=== PATIENT | female | born 1985 | race African-American/Black ===

== ENCOUNTER 2017-04-10 21:34 | Emergency (ER) | payer OTHER ==
[~2017-04-10] VITALS: Ht 172.7 cm; Wt 68.0 kg
[2017-04-10] MEDS ORDERED: CEPH500 PO (22:10)
[2017-04-10] MEDS ORDERED: FERR1TAB21 PEG (22:10)
[2017-04-10 23:12] LABS: BASOPHILS % (AUTO) 0.6 % (0.0-2.0); EOSINOPHILS % (AUTO) 1.2 % (1.0-6.0); HEMATOCRIT 34.8 % (36-46); HEMOGLOBIN 11.5 g/dL (12.0-16.0); LYMPHOCYTES % (AUTO) 38.4 % (22.0-44.0); MEAN CORPUSCULAR HEMOGLOBIN 27.6 pg (26.0-34.0); MEAN CORPUSCULAR VOLUME 84 fL (80-100); MONOCYTES # (AUTO) 0.7 K/uL (0.1-1.0); NEUTROPHILS # (AUTO) 5.5 K/uL (1.8-7.7); NEUTROPHILS % (AUTO) 52.8 % (40.0-70.0); PLATELET COUNT (AUTO) 306 K/uL (150-450); RED BLOOD CELL COUNT(AUTO) 4.16 MIL/uL (4.00-5.20); RED CELL DISTRIBUTION WIDTH 13.8 % (11.5-14.5); WHITE BLOOD COUNT (AUTO) 10.3 K/uL (4.5-11.0)
[2017-04-11] MEDS ORDERED: ACETAMINOPHEN/CODEINE 300-30 MG TABLET PO ONE (03:00)
[2017-04-11 06:06] VITALS: BP 117/66
== END 2017-04-11 06:51 | disposition home or self-care (01) ==
LOC: EMS 21:35
DX: O03.9 Complete or unspecified spontaneous abortion without complication (principal); F17.210 Nicotine dependence, cigarettes, uncomplicated
CPT/HCPCS: 86901; 99284

== ENCOUNTER 2019-04-24 16:05 | Emergency (ER) | payer OTHER ==
[~2019-04-24] VITALS: Ht 175.3 cm; Wt 59.1 kg
[~2019-04-24 16:05] MED LIST: CEPH500 PO; FERR-82 PEG
[2019-04-24] MEDS ORDERED: DEXAMETHASONE SOD PHOS 4 MG/ML 5 ML VIAL IM ONE (17:30)
[2019-04-24] MEDS ORDERED: DiphenhydrAMINE HCL 25 MG CAPSULE PO ONE (17:30)
[2019-04-24 18:34] VITALS: BP 117/74
== END 2019-04-24 18:39 | disposition home or self-care (01) ==
LOC: EMS 16:09
DX: L50.9 Urticaria, unspecified (principal); F17.210 Nicotine dependence, cigarettes, uncomplicated; F12.90 Cannabis use, unspecified, uncomplicated
CPT/HCPCS: 96372; 99283; J1100

== ENCOUNTER 2021-12-02 16:19 | Emergency (ER) | payer MEDICAID, OTHER ==
[~2021-12-02] VITALS: Ht 172.7 cm; Wt 75.0 kg
[2021-12-02 16:35] VITALS: BP 124/95
[2021-12-02] MEDS ORDERED: SULFAMETHOX/TRIMETH DS 800-160 MG/TABLET PO ONE (17:00)
[2021-12-02] MEDS ORDERED: CEPHALEXIN MONOHYDRATE 500 MG CAPSULE PO ONE (17:00)
[2021-12-02] MEDS ORDERED: SULF-261 PO (17:18)
[2021-12-02] MEDS ORDERED: CEPH-558 PO (17:18)
== END 2021-12-02 17:32 | disposition home or self-care (01) ==
LOC: EMS 16:19
DX: L02.416 Cutaneous abscess of left lower limb (principal); F12.90 Cannabis use, unspecified, uncomplicated; F17.210 Nicotine dependence, cigarettes, uncomplicated
CPT/HCPCS: 99283